=== PATIENT | female | born 1970 | race Caucasian/White ===

== ENCOUNTER 2019-10-09 03:52 | Emergency (ER) | payer OTHER ==
[~2019-10-09] VITALS: Ht 160 cm; Wt 53.0 kg
[2019-10-09] MEDS ORDERED: DIAZEPAM 5 MG/ML, 2ML ONE (04:15)
[2019-10-09] MEDS ORDERED: HYDROmorphone 1 MG/ML, 1ML INJ ONE ×2 (04:15→05:34)
[2019-10-09] MEDS: HYDROmorphone 1 MG/ML, 1ML INJ IVPush PRN ×2 (04:19→05:35)
[2019-10-09] MEDS ORDERED: DIAZEPAM 5 MG/ML, 2ML IVPush ONE (04:30)
--- NOTE | 2019-10-09 04:46 | NUR ---
ct[facility] pending lab/beta/creatine.
[2019-10-09 04:55] LABS: BASOPHILS # (AUTO) 0.02 x10^3/uL (0-0.1); BASOPHILS % (AUTO) 0 % (0-1); EOSINOPHILS # (AUTO) 0.27 x10^3/uL (0-0.4); EOSINOPHILS % (AUTO) 2 % (1-7); LYMPHOCYTES # (AUTO) 3.28 x10^3/uL (1-3.4); LYMPHOCYTES % (AUTO) 29 % (22-44); MD NO; MEAN CORPUSCULAR HEMOGLOBIN 32.5 pg (27.0-34.8); MEAN CORPUSCULAR HGB CONC 33.9 g/dL (32.4-35.8); MEAN CORPUSCULAR VOLUME 95.9 fL (80-100); MEAN PLATELET VOLUME 8.4 fL (7.4-10.4); MONOCYTES # (AUTO) 0.81 x10^3/uL (0.2-0.8); MONOCYTES % (AUTO) 7 % (2-9); NEUTROPHILS # (AUTO) 6.85 x10^3/uL (1.8-6.8); NEUTROPHILS % (AUTO) 61 % (42-75); PLATELET COUNT 295 x10^3/uL (130-400)
[2019-10-09 05:00] LABS: ALANINE AMINOTRANSFERASE 24 U/L (12-78); ALBUMIN 3.6 g/dL (3.4-5.0); ANION GAP 3 mmol/L (5-15); CALCIUM 8.7 mg/dL (8.5-10.1); CHLORIDE 110 mmol/L (98-107); CREATININE 0.64 mg/dL (0.55-1.02)
[2019-10-09 05:05] LABS: ALKALINE PHOSPHATASE 65 U/L (45-117); BILIRUBIN,TOTAL 0.4 mg/dL (0.2-1.0); TOTAL PROTEIN 7.4 g/dL (6.4-8.2); TROPONIN I < 0.015 ng/mL (0.000-0.045)
--- NOTE | 2019-10-09 05:16 | NUR ---
PT TO [facility]
[2019-10-09] MEDS ORDERED: OMNIPAQUE 350 MG/ML, 100ML BOTTLE ONE (05:34)
--- NOTE | 2019-10-09 05:37 | NUR ---
pt medicated per oct. awaiting ct result
--- NOTE | 2019-10-09 05:59 | NUR ---
URINE SAMPLE SENT
[2019-10-09 06:23] LABS: MICROSCOPIC AUTO
[2019-10-09 06:24] LABS: CULTURE INDICATED? YES
--- NOTE | 2019-10-09 06:52 | NUR ---
REPORT GIVEN TO JAMES PANCHAL
--- NOTE | 2019-10-09 06:52 | NUR ---
REPORT RECEIVED FROM CLIFFORD LOPES PT RESTING ON BRYCE AT THIS TIME, NAD NOTED Addendum: 10/09/19 at 0847 by CAROL PT RESTING ON [employer] TEXTING ON PHONE, APPEARS COMFORTABLE
[2019-10-09] MEDS ORDERED: KETOROLAC 30 MG/1 ML IVPush ONE (07:00)
[2019-10-09] MEDS ORDERED: CEFTRIAXONE PMX 1GM/50ML 50 ML IV ONE (07:00)
[2019-10-09] MEDS ORDERED: CEFTRIAXONE PMX 1GM/50ML 50 ML ONE (07:03)
[2019-10-09] MEDS ORDERED: KETOROLAC 30 MG/1 ML ONE (07:03)
--- NOTE | 2019-10-09 08:00 | NUR ---
PT MEDICATED PER MAR, PT TEARFUL STATES "I CANT WALK I CANT DO MY MAKEUP, THIS CANT BE A UTI", DISCUSSED WITH ERMChristin.
--- NOTE | 2019-10-09 08:49 | NUR ---
PT TO CT
--- NOTE | 2019-10-09 09:23 | NUR ---
PT RETURNED FROM CT
[2019-10-09 10:49] VITALS: BP 121/61
== END 2019-10-09 10:52 | disposition home or self-care (01) ==
LOC: ED 09:05
DX: M54.6 Pain in thoracic spine (principal); F17.200 Nicotine dependence, unspecified, uncomplicated; Z90.49 Acquired absence of other specified parts of digestive tract; Z90.710 Acquired absence of both cervix and uterus
CPT/HCPCS: 36415; 71045; 71275; 72125; 80053; 81001; 84484; 84703; 85025; 87077; 87086; 93005; 96365; 96366; 96375; 96376; 99285; J0696; J1170; J1885; J3360; J7512; Q9967; 87186